=== PATIENT | male | born 1990 | race Caucasian/White ===

== ENCOUNTER 2020-10-25 11:36 | Emergency (ER) | payer OTHER ==
[~2020-10-25] VITALS: Ht 185.4 cm; Wt 72.6 kg
[2020-10-25 12:04] LABS: ABSOLUTE LYMPHOCYTES 1.1 thou/uL (0.8-5.3); ABSOLUTE NEUTROPHILS 3.8 thou/uL (1.6-8.1); BASOPHILS 0.7 %; EOSINOPHILS 0.4 %; HEMATOCRIT 44.5 % (42.0-52.0); HEMOGLOBIN 15.5 gm/dL (14.0-18.0); LYMPHOCYTES 18.2 %; MCHC 34.9 g/dL (28.0-37.0); MONOCYTES 16.7 %; MPV 8.4 fl. (7.2-11.1); NUCLEATED RBCS 0 /100WBC; PLATELET COUNT* 124 thou/uL (150-400); RDW-CV 14.5 % (10.5-14.5); WBC 5.9 thou/uL (4.0-11.0)
[2020-10-25 12:13] LABS: ANION GAP 8 mmol/L (7-16); BUN 6 mg/dL (7-18); CALCIUM 9.1 mg/dL (8.5-10.1); CHLORIDE 100 mmol/L (98-107); CO2 30 mmol/L (21-32); CREATININE 0.7 mg/dL (0.6-1.3); GLUCOSE 148 mg/dL (70-99); POTASSIUM 3.4 mmol/L (3.5-5.1); SODIUM 138 mmol/L (136-145)
[2020-10-25 12:15] LABS: APTT 25.9 Seconds (25.0-31.3); INR 1.1; PROTIME 11.5 Seconds (9.20-11.50)
[2020-10-25 12:25] LABS: ALBUMIN 4.1 g/dL (3.4-5.0); ALKALINE PHOSPHATASE 106 U/L (46-116); CK-MB MASS < 0.5 ng/mL (<0.5-3.6); LIPASE 202 U/L (73-393); MAGNESIUM 1.6 mg/dL (1.8-2.4); NT-PRO BRAIN NAT PEPTIDE 33 pg/mL (<300); SGOT 212 U/L (15-37); SGPT 263 U/L (30-65); TOTAL BILIRUBIN 2.4 mg/dL (<0.1-1.0); TOTAL PROTEIN 7.5 g/dL (6.4-8.2)
[2020-10-25 12:43] VITALS: BP 128/84
--- NOTE | 2020-10-25 14:59 | EKG ---
[place] [address] ELECTROCARDIOGRAM REPORT Name: JIMMY FERMIN SANDRO Room: [facility]#: [id number] Admission: 10/25/20 Attend Phys: Discharge: 10/25/20 Date of : [birth year] Date of Service: 10/25/20 1142 Report #: [id number] THIS REPORT FOR: //name// [facility] ED Test Date: 2020-10-25 Test Time: 11:42:14 Pat Name: JIMMY FERMIN Department: Room: Gender: Pharmacy Coordinator: DSL : 1990 Requested By: Pieter Gillespie Order Number: [id number] MD: Jonah Wise Measurements Intervals [place] Rate: 95 P: 78 GA: 152 QRS: 38 QRSD: 102 T: 64 QT: 328 QTc: 413 Interpretive Statements Sinus rhythm RSR' in V1 or V2, right VCD or RVH Baseline wander in lead(s) II,III,aVF No previous ECG available for comparison Electronically Signed On 10-25-2020 14:59:03 [employer] by Jonah Wise [email or web address] <ELECTRONICALLY SIGNED> By: Jonah Wise MD, FACC 10/25/20 1459 1142 1142 Jonah Wise MD, [facility] /EPI
== END 2020-10-25 12:44 | disposition home or self-care (01) ==
LOC: M.ERS 11:36
PROVIDERS: Family Medicine
DX: R07.9 Chest pain, unspecified (principal); Z20.828 Contact with and (suspected) exposure to other viral communicable diseases; R05 Cough; F10.20 Alcohol dependence, uncomplicated; R94.5 Abnormal results of liver function studies; Y90.9 Presence of alcohol in blood, level not specified